=== PATIENT | female | born 1975 | race Caucasian/White ===

== ENCOUNTER → 2016-07-23 | Outpatient (CLI) | payer OTHER | END | disposition home or self-care (01) | LOC: ROC 15:14 | PROVIDERS: ATTEND Radiology Radiation Oncology | DX: C50.411 Malignant neoplasm of upper-outer quadrant of right female breast (principal) | CPT/HCPCS: 99213; G0463 ==

== ENCOUNTER 2020-11-12 20:04 | Emergency (ER) | payer OTHER ==
[~2020-11-12] VITALS: Ht 162.6 cm; Wt 77.3 kg
[~2020-11-12 20:04] MED LIST: FERR325T18 PO; HYDR-2214 PO
[2020-11-12] MEDS ORDERED: MORPHINE SULFATE 4 MG/ML, 1ML IVPush PRN (23:00)
[2020-11-12] MEDS ORDERED: ONDANSETRON 2MG/ML, 2ML IVPush ONE (23:00)
[2020-11-12] MEDS ORDERED: SODIUM CHLORIDE 0.9% 1,000ML IVBOLUS ONE (23:00)
[2020-11-12] MEDS ORDERED: ONDANSETRON 2MG/ML, 2ML ONE (23:11)
[2020-11-12 23:20] LABS: BASOPHILS % (AUTO) 0 % (0-1); EOSINOPHILS % (AUTO) 1 % (1-7); LYMPHOCYTES % (AUTO) 35 % (22-44); MEAN CORPUSCULAR HEMOGLOBIN 31.7 pg (27.0-34.8); MEAN CORPUSCULAR HGB CONC 34.3 g/dL (32.4-35.8); MONOCYTES % (AUTO) 9 % (2-9); NEUTROPHILS % (AUTO) 55 % (42-75); PLATELET COUNT 278 x10^3/uL (130-400); RED BLOOD COUNT 4.02 x10^6/uL (3.82-5.3); RED CELL DISTRIBUTION WIDTH 13.5 % (9.6-15.2)
[2020-11-12] MEDS ORDERED: MORPHINE SULFATE 4 MG/ML, 1ML ONE (23:27)
[2020-11-12 23:31] LABS: ALANINE AMINOTRANSFERASE 70 U/L (12-78); ALBUMIN 3.2 g/dL (3.4-5.0); ANION GAP 3 mmol/L (5-15); CALCIUM 8.6 mg/dL (8.5-10.1); CHLORIDE 107 mmol/L (98-107)
[2020-11-12 23:34] LABS: ALKALINE PHOSPHATASE 112 U/L (45-117); BILIRUBIN,TOTAL 0.3 mg/dL (0.2-1.0); CREATININE 0.74 mg/dL (0.55-1.02); TOTAL PROTEIN 7.9 g/dL (6.4-8.2)
[2020-11-13 00:39] LABS: MICROSCOPIC INDICATED
--- NOTE | 2020-11-13 00:48 | NUR ---
BREAK RN: PT RESTING IN ROOM. VS STABLE. NO ACUTE DISTRESS NOTED. WILL CONTINUE TO MONITOR WHILE PRIMARY RN IS ON BREAK.
[2020-11-13 00:59] VITALS: BP 105/55
--- NOTE | 2020-11-13 01:08 | NUR ---
REPORT GIVEN TO ISMAEL LLAMAS
[2020-11-13] MEDS ORDERED: MAALOX/HYOSCYAMINE/LIDOCAINE 45 ML BTL PO ONE (01:30)
[2020-11-13] MEDS ORDERED: MAALOX/HYOSCYAMINE/LIDOCAINE 45 ML BTL ONE (01:42)
== END 2020-11-13 01:53 | disposition home or self-care (01) ==
LOC: ED 20:09
DX: K29.00 Acute gastritis without bleeding (principal); Z85.3 Personal history of malignant neoplasm of breast; R19.7 Diarrhea, unspecified
CPT/HCPCS: 36415; 76700; 80053; 81001; 83690; 85025; 87086; 96361; 96374; 96375; 99284; J2270; J2405; J7030